=== PATIENT | female | born 1975 | race Caucasian/White ===

== ENCOUNTER 2023-12-06 10:51 | Outpatient (CLI) | payer BC ==
[2023-12-06 12:56] LABS: Anion Gap 13 mmol/L (10-20); BUN (Urea Nitrogen) 11 mg/dL (7.0-18.7); Calc. Creatinine Clearance 0 mL/min (70-130); Calcium 9.2 mg/dL (7.8-10.44); Carbon Dioxide 26 mmol/L (22-29); Chloride 107 mmol/L (98-107); Estimated GFR 98; Glucose 68 mg/dL (70-105); Potassium 4.5 mmol/L (3.5-5.1); Sodium 141 mmol/L (136-145)
== END 2023-12-06 10:52 | disposition home or self-care (01) ==
LOC: CSHLAB 10:51
PROVIDERS: ATTEND Surgery
DX: Z01.818 Encounter for other preprocedural examination (principal); K83.9 Disease of biliary tract, unspecified
CPT/HCPCS: 80048; 93005; 93010